=== PATIENT | female | born 1995 | race Caucasian/White ===

== ENCOUNTER 2018-10-26 16:55 | Outpatient (CLI) | payer MEDICAID, SELFPAY ==
[2018-06-02 09:25] VITALS: BMI 37.3
[2018-10-26 17:58] VITALS: BMI 36.4
[2018-10-26 18:11] LABS: ROM Internal Control Test YES-OK TO RESULT pt. (Internal QC); ROM Patient Test Negative (Negative)
--- NOTE | 2018-10-26 20:29 | OB.TRI.PN ---
Progress Notes Date of Service: 10/26/18 Progress Note: at 36w1d. Presented to L&D with complaint of orange tinged vaginal discharge. Denied any uterine contractions, vaginal bleeding or other concerns. O: FHT 135, moderate variability, accels, no decels, Reactive No contractions ROM Plus negative A: Vaginal Discharge P: 1) ROM plus negative, ok to D/C home 2) Follow up as scheduled. Laboratory Studies: Laboratory Tests 10/26/18 Range/Units 17:35 Vag Amniotic Fld Detect Negative (Negative)
== END 2018-10-26 19:04 | disposition home or self-care (01) ==
LOC: WPOUT 17:10 → WP 17:11 → OBT 17:20
PROVIDERS: Family Provider Student in an Organized Health Care Education/Training Program; PCP Student in an Organized Health Care Education/Training Program; Referring Provider Advanced Practice Midwife; Visit Provider Advanced Practice Midwife
DX: O26.893 Other specified pregnancy related conditions, third trimester (principal); N89.8 Other specified noninflammatory disorders of vagina; Z3A.36 36 weeks gestation of pregnancy
CPT/HCPCS: 59025; 59050; 84112; 99218; G0378

== ENCOUNTER 2018-11-16 07:00 | Inpatient (IN) | payer MEDICAID, SELFPAY ==
[2018-11-16 07:19] VITALS: BMI 39.1
[2018-11-16] MEDS: Lactated Ringers 1,000 ML 50 ML IV ×3 (07:45→17:40)
[2018-11-16 07:59] LABS: Absolute Lymphocyte Count 2.14 X10^3/uL (0.83-4.51); Absolute Neutrophil Count 5.2 X10^3/uL (2.0-7.7); Basophil# 0.01 X10^3/uL; Basophil% 0.1 % (0-1); Eosinophil# 0.25 X10^3/uL; Hematocrit 30.8 % (37-47); Hemoglobin 10.2 g/dL (12.0-15.0); Lymphocyte # 2.14 X10^3/ul (4.0); Lymphocyte % 25.7 % (19-41); Mean Corp Hgb Conc 33.1 g/dL (32-36); Mean Corpuscular Hgb 27.3 pg (27.0-32.0); Mean Corpuscular Volume 82.6 fL (81-99); Mean Platelet Vol. 9.7 fl (6.2-12.0); Monocyte# 0.66 X10^3/uL; Monocyte% 7.9 % (0-10); NRBC Flagged by Analyzer 0 % (0-5); Neutrophil % 62.5 % (47-70); Platelet Count 273 K/mm3 (150-450); RBC Distribution Width CV 17.6 % (11.6-14.6); RBC Distribution Width SD 51.2 fl (35.1-43.9); Red Blood Count 3.73 M/mm3 (4.2-5.4); White Blood Count 8.3 K/mm3 (4.4-11.0)
[2018-11-16] MEDS: Oxytocin 30 units/NS 500 ml 30 UNITS/500 ML IV.SOLN IV (08:00)
[2018-11-16] MEDS: 0.9% Normal Saline 100 ML IV.SOLN. INTRA-UTER (08:51)
--- NOTE | 2018-11-16 08:58 | HP.PCM_ITS ---
- Problem List (1) Anemia affecting Status: Acute (2) Asthma Status: Acute (3) History of labor Status: Acute (4) Positive GBS test Status: Acute (5) Term Status: Acute (6) Elective induction of labor planned Status: Acute History Date of Admission: 02/22/11 Final TENZIN: 11/22/18 Gestational age: 39 Weeks and 1 Days History of this : This is a 23 year-old, G [2], P [0101], at 39 weeks gestational age. Presents for elective induction of labor. Medical History: Medical History (Last Reviewed 11/09/18 @ 13:24 by Milena Valles) Environmental allergies Z91.09 Headaches, cluster G44.009 and not yet delivered Z34.90 Surgical History: Surgical History (Last Reviewed 11/09/18 @ 13:24 by Milena Valles) History of appendectomy Z90.49 History of cholecystectomy Z90.49 History of right knee surgery Z98.890 Allergies No Known Allergies Allergy (Verified 11/16/18 07:45) Home Medications: Home Medications vitamin,calcium,urtqikqb-tswm-lsghp acid tablet 1 tab PO DAILY 06/02/18 Famotidine [Pepcid] 40 mg PO 11/16/18 Ferrous Sulfate [Iron] 325 mg PO 11/16/18 Smoking Status: Never smoker Alcohol: None Number of Fetus(es): 1 NST - FHR Rate Baby A Baseline: 135 Variability:: Moderate Accelerations:: 15 x 15 Decelerations:: None NST Reactive:: Yes FHR Category:: Category I Uterine Activity:: Irregular, mild History Past Pregnancies: Past Pregnancies Delivery Date Name GA/Weeks Outcome Route Weight Gender Labor Length Anesthesia Delivery Location Provider FOB Labs: GBS positive RPR negative Rubella Immune HBsAG negative HIV negative AB positive GC/CT negative Expected Infant Delivery Method: Spontaneous Vaginal Review of Systems Constitutional: Denies: Chills, Fever, Weight Change HEENT: Denies: Head Aches, Sinus Congestion, Sinus Drainage Cardiovascular: Denies: Chest Pain, Palpitations Respiratory: Denies: Cough, Shortness of breath at rest, Sputum production Gastrointestinal: Denies: Abdominal Pain, Nausea, Vomiting Genitourinary: Denies: Dysuria Musculoskeletal: Denies: Joint Pain, Joint Tenderness Neurological: Denies: Numbness, Tingling, Focal weakness Psychiatric: Denies: Anxiety, Depression, Homicidal Ideations, Suicidal Ideations Physical Exam General: Alert, Oriented x3, No apparent distress HEENT: Atraumatic, Normocephalic Cardiovascular: Regular rate, Regular Rhythm, No murmurs Lungs: Clear to auscultation, Normal air movement, No rhonchi, No wheeze Abdomen: Soft, Non Tender, Gravid, Appropriate for Gestational Age Extremities:: No edema Neurological: - - DTR +1/4 bilateral patellar CERTIFIED SKI PATROLLER: Normal external genitalia Estimated gestational size: Appropriate for gestational size Presentation: Cephalic Cervix Dilation (cm): 3 Station: -2 Effacement (%): 75 Assessment/Plan All Active Problems (Last Reviewed 11/09/18 @ 13:24 by Milena Valles) Anemia affecting (Acute) Asthma (Acute) History of labor (Acute) Positive GBS test (Acute) Term (Acute) Elective induction of labor planned (Acute) Segmental and somatic dysfunction of pelvic region (Acute) Segmental and somatic dysfunction of thoracic region (Acute) Segmental and somatic dysfunction of lumbar region (Acute) Segmental and somatic dysfunction of cervical region (Acute) This is a 23 year-old, G [2], P [0101], at 39 weeks gestational age for elective IOL. Category 1 FHT P: 1) Admit to L&D. Routine labs 2) Planning epidural for pain management 3) notified of patient status and admission.
--- NOTE | 2018-11-16 12:56 | PN.OBGYN_ITS ---
Patient Problems: Active and Suspected Problems (Last Reviewed 11/09/18 @ 13:24 by iMlena Valles) Anemia affecting (Acute) Asthma (Acute) History of labor (Acute) Positive GBS test (Acute) Subjective: Resting well in bed. Family at bedside. Objective: FHT 120, moderate variability, accels, no decels, Category 1 Pitocin at 2mu's TOCO: every 2-3 minutes. Mild to moderate Cervix: 5cm/80%/-1 IBOW AROM for moderate amount of clear fluid, tolerated well. - Physical Exam Weight: 228 lb Body Mass Index (BMI) 39.1 Laboratory Tests Past 24 Hrs 11/16/18 11/16/18 07:45 07:45 WBC 8.3 RBC 3.73 L Hgb 10.2 L Hct 30.8 L MCV 82.6 MCH 27.3 MCHC 33.1 RDW Std Deviation 51.2 H RDW Coeff of Ino 17.6 H Plt Count 273 MPV 9.7 Immature Gran % (Auto) 0.800 Neut % (Auto) 62.5 Lymph % (Auto) 25.7 [place] % (Auto) 7.9 Eos % (Auto) 3.0 Baso % (Auto) 0.1 Absolute Neuts (auto) 5.2 Absolute Lymphs (auto) 2.14 Nucleated RBC % 0 Blood Type AB POSITIVE Antibody Screen NEGATIVE Medical Necessity - Tobacco Use Smoking Status: Never smoker Assessment/Plan All Active Problems (Last Reviewed 11/09/18 @ 13:24 by Milena Valles) Anemia affecting (Acute) Asthma (Acute) History of labor (Acute) Positive GBS test (Acute) Segmental and somatic dysfunction of pelvic region (Acute) Segmental and somatic dysfunction of thoracic region (Acute) Segmental and somatic dysfunction of lumbar region (Acute) Segmental and somatic dysfunction of cervical region (Acute) A:IOL, progressing Category 1 FHT P: 1) Continue with active management. AROM, reviewed r/b/a with patient, consented. 2) Epidural upon patient request 3) updated
[2018-11-16] MEDS: fentaNYL-bupivacaine (epidural) 100 ML BAG EPIDURAL ×2 (13:50→17:43)
[2018-11-16] MEDS: Oxytocin 30 units/NS 500 ml 30 UNITS/500 ML IV.SOLN 334 UNITS IV (18:35)
[2018-11-16] MEDS: 0.9% Saline Lock 10 ML Syringe IV (21:04)
--- NOTE | 2018-11-16 21:54 | PCM.OPRPT ---
Problem List (1) Anemia affecting Status: Acute (2) Asthma Status: Acute (3) History of labor Status: Acute (4) Positive GBS test Status: Acute (5) Term Status: Acute (6) Elective induction of labor planned Status: Acute (7) Vaginal delivery Status: Acute (8) First degree perineal laceration Status: Acute Vaginal Delivery Maternal Presentation: Elective Induction Method of Induction: Pitocin, [place] Bulb Amniotic Membrane Rupture Type: Artificial Amniotic Fluid Description: Clear Final TENZIN: 11/22/18 Gestational age: 39 Weeks and 1 Days Date of Procedure: 11/16/18 Pre-Operative Diagnosis: Elective Induction of Labor Post-Operative Diagnosis: Surgery/ Procedure Performed: Spontaneous Vaginal Delivery Type of Anesthesia: Epidural Description of Procedure: Baby with FHT down to 70's. Upon cervical exam found to b 9.5cm. Recover of FHT to 120's. Progressed to complete and pushing efforts began. of viable male over intact perineum with small first degree periurethral laceration. Infant head delivered with body forthcoming. Placed on maternal abdomen strong cry, mouth and nares suctioned for secretions. Pitocin started for active third stage management. Cord clamped and cut after pulsations ceased by FOB. Placenta delivered via maternal effort, intact, 3 vessel cord. Perineum inspected and revealed small first degree laceration periurethral. Repaired under epidural analgesia and 3.0 vicryl. Fundus firm and hemostasis achieved, 150ml EBL. Instrument and sponge count correct. Vaginal sweep completed. Mom and baby stable, family bonding well. Presentation: Vertex Placental Delivery Description: Spontaneous Placenta Disposition: [facility] Cord Vessel Description: 3 Vessels Cord Entanglement: None Estimated Blood Loss: 150 ml Infant A gender: Male (1 minute): 9 (5 minute): 9 Episiotomy Description: None Laceration: Periurethral Extnsion/lac, 1st degree Medications given after delivery: IV Pitocin
[2018-11-17 00:11] VITALS: BP 115/65; PULSE 90; RESP 16; TEMP 36.2; O2SAT 95
[2018-11-17] MEDS: Acetaminophen 500 MG Tablet 1000 MG PO (00:28)
[2018-11-17 04:30] VITALS: BP 106/56; PULSE 88; RESP 16; TEMP 36.2; O2SAT 97
[2018-11-17 06:08] LABS: Hematocrit 30.4 % (37-47); Hemoglobin 9.8 g/dL (12.0-15.0); Mean Corp Hgb Conc 32.2 g/dL (32-36); Mean Corpuscular Hgb 26.8 pg (27.0-32.0); Mean Corpuscular Volume 83.3 fL (81-99); Mean Platelet Vol. 9.5 fl (6.2-12.0); Platelet Count 252 K/mm3 (150-450); RBC Distribution Width CV 17.7 % (11.6-14.6); RBC Distribution Width SD 53.1 fl (35.1-43.9); Red Blood Count 3.65 M/mm3 (4.2-5.4); White Blood Count 12.1 K/mm3 (4.4-11.0)
--- NOTE | 2018-11-17 07:38 | PCM.PN.OB ---
Patient Problems: Active and Suspected Problems (Last Reviewed 11/09/18 @ 13:24 by Milena Valles) Anemia affecting (Acute) Asthma (Acute) History of labor (Acute) Positive GBS test (Acute) Term (Acute) Elective induction of labor planned (Acute) Vaginal delivery (Acute) First degree perineal laceration (Acute) Subjective: pain well controlled, average lochia - Physical Exam General: Alert, Cooperative, No apparent distress Vital Signs Temp Pulse Resp BP Pulse Ox 97.2 F L 88 16 106/56 L 97 11/17/18 04:30 11/17/18 04:30 11/17/18 04:30 11/17/18 04:30 11/17/18 04:30 Oxygen Delivery Method Room Air Weight: 103.419 kg Body Mass Index (BMI) 39.1 Intake and Output for Last 24 Hours 11/15/18 11/16/18 11/17/18 23:59 23:59 23:59 Intake Total 2600 / 2600 Output Total 1000 / 1000 700 / 700 Balance 1600 / 1600 -700 / -700 Laboratory Tests Past 24 Hrs 11/16/18 11/16/18 11/17/18 07:45 07:45 05:50 WBC 8.3 12.1 H RBC 3.73 L 3.65 L Hgb 10.2 L 9.8 L Hct 30.8 L 30.4 L MCV 82.6 83.3 MCH 27.3 26.8 L MCHC 33.1 32.2 RDW Std Deviation 51.2 H 53.1 H RDW Coeff of Ino 17.6 H 17.7 H Plt Count 273 252 MPV 9.7 9.5 Immature Gran % (Auto) 0.800 Neut % (Auto) 62.5 Lymph % (Auto) 25.7 [place] % (Auto) 7.9 Eos % (Auto) 3.0 Baso % (Auto) 0.1 Absolute Neuts (auto) 5.2 Absolute Lymphs (auto) 2.14 Nucleated RBC % 0 Blood Type AB POSITIVE Antibody Screen NEGATIVE Medical Necessity - Tobacco Use Smoking Status: Never smoker Assessment/Plan All Active Problems (Last Reviewed 11/09/18 @ 13:24 by Milena Valles) Anemia affecting (Acute) Asthma (Acute) History of labor (Acute) Positive GBS test (Acute) Term (Acute) Elective induction of labor planned (Acute) Vaginal delivery (Acute) First degree perineal laceration (Acute) Segmental and somatic dysfunction of pelvic region (Acute) Segmental and somatic dysfunction of thoracic region (Acute) Segmental and somatic dysfunction of lumbar region (Acute) Segmental and somatic dysfunction of cervical region (Acute) PPD#1 s/p doing well routine care in [facility] for resp. issues
[2018-11-17 09:00] VITALS: BP 96/49; PULSE 87; RESP 18; TEMP 36.2
[2018-11-17] MEDS: Ibuprofen 600 MG Tablet PO (09:05)
[2018-11-17 13:00] VITALS: BP 108/63; PULSE 68; RESP 18; TEMP 36.4
[2018-11-17 16:00] VITALS: BP 115/68; PULSE 64; RESP 16; TEMP 36.1
[2018-11-17 21:00] VITALS: BP 117/78; PULSE 84; RESP 18; TEMP 36.7
== END 2018-11-17 22:50 | disposition home or self-care (01) | DRG 560 ==
PROVIDERS: Admitting Provider Advanced Practice Midwife; Family Provider Student in an Organized Health Care Education/Training Program; PCP Student in an Organized Health Care Education/Training Program; Referring Provider Advanced Practice Midwife; Visit Provider Advanced Practice Midwife
DX: O99.02 Anemia complicating childbirth (principal); D64.9 Anemia, unspecified; O99.820 Streptococcus B carrier state complicating pregnancy; O70.0 First degree perineal laceration during delivery; O99.513 Diseases of the respiratory system complicating pregnancy, third trimester; J45.909 Unspecified asthma, uncomplicated; Z87.51 Personal history of pre-term labor; Z3A.39 39 weeks gestation of pregnancy; Z37.0 Single live birth
CPT/HCPCS: 59025; 59050; 85025; 85027; 86850; 86900; 86901; 99218; J7120; A4216; G0378

== ENCOUNTER 2019-04-22 06:00 | Day surgery (SDC) | payer MEDICAID, SELFPAY ==
[2019-01-19 11:59] VITALS: BMI 39.1
--- NOTE | 2019-04-21 21:08 | PCM.HP.OB ---
- Problem List (1) Sterilization Status: Acute History Date of Admission: 04/22/19 History of this : This is a 23 year-old who desires permanent sterilization. Medical History: Medical History (Last Reviewed 01/19/19 @ 11:47 by Milena Valles) Environmental allergies Z91.09 Headaches, cluster G44.009 and not yet delivered Z34.90 Surgical History: Surgical History (Last Reviewed 01/19/19 @ 11:47 by Milena Valles) History of appendectomy Z90.49 History of cholecystectomy Z90.49 History of right knee surgery Z98.890 Allergies No Known Allergies Allergy (Verified 04/15/19 10:02) Home Medications: Home Medications Norethindrone-E.estradiol-Iron [Aurovela Fe 1-20 Tablet] 1 ea PO DAILY 04/15/19 buPROPion SR [Wellbutrin SR (150mg tablets)] 150 mg PO DAILY 04/15/19 Smoking Status: Never smoker History Past Pregnancies: Past Pregnancies Delivery Date Name GA/ Weeks Outcome Route Wt Infant Sex Labor Length Anesthesia Delivery Location Provider FOB Review of Systems Constitutional: Denies: Fever Eyes: Denies: Blurred vision HEENT: Denies: Head Aches Cardiovascular: Denies: Chest Pain Respiratory: Denies: Cough, Shortness of Breath Gastrointestinal: Denies: Abdominal Pain Genitourinary: Denies: Dysuria Gynecological: Denies: Vaginal bleeding Psychiatric: Denies: Anxiety, Depression Physical Exam General: Alert, No apparent distress HEENT: Atraumatic Cardiovascular: Regular rate Lungs: Clear to auscultation Abdomen: Soft, Non Tender Extremities:: No edema Neurological: Neuro grossly intact Assessment/Plan All Active Problems (Last Reviewed 01/19/19 @ 11:47 by Milena Valles) Anemia affecting (Acute) Asthma (Acute) History of labor (Acute) Positive GBS test (Acute) Term (Acute) Elective induction of labor planned (Acute) Vaginal delivery (Acute) First degree perineal laceration (Acute) Sterilization (Acute) Segmental and somatic dysfunction of pelvic region (Acute) Segmental and somatic dysfunction of thoracic region (Acute) Segmental and somatic dysfunction of lumbar region (Acute) Segmental and somatic dysfunction of cervical region (Acute) This is a 23 year-old depressed patient who desires permanent sterilization. She is 100% certain that she does not want more children in the future. She understands that the surgery is permanent and not reversible, and that there is a risk for regret. She understands all other options for control including long-acting reversible contraception. Reviewed pre-and postoperative care. After discussion of risks, benefits, alternatives the patient desires to proceed with laparoscopic salpingectomy.
[2019-04-22] VITALS (7 sets, daily range): BP systolic 87–112; BP diastolic 49–70; PULSE 57–117; RESP 16; TEMP 36.2–36.8; O2SAT 92–100; BMI 38.2
--- NOTE | 2019-04-22 06:23 | EKG12_ITS ---
Test Reason : PREOP Blood Pressure : / mmHG Vent. Rate : 067 BPM Atrial Rate : 067 BPM P-R Int : 132 ms QRS Dur : 094 ms QT Int : 388 ms P-R-T Axes : -12 035 006 degrees QTc Int : 409 ms Normal sinus rhythm with sinus arrhythmia T wave abnormality, consider anterior ischemia Abnormal ECG When compared with ECG of 30-APR-2014 11:42, Fusion complexes are no longer Present Premature ventricular complexes are no longer Present Vent. rate has decreased BY 53 BPM Confirmed by SAMIRA CAVAZOS, CARLA ([id number]), communications editor ANTWON MENDEZ ([id number]) on 04/23/2019 2:44:33 PM Referred By: Tri Stanley Confirmed By:EILEEN HOGAN MD
[2019-04-22 06:36] LABS: Hematocrit 42.3 % (37-47); Hemoglobin 13.9 g/dL (12.0-15.0); Mean Corp Hgb Conc 32.9 g/dL (32-36); Mean Corpuscular Hgb 28.3 pg (27.0-32.0); Mean Platelet Vol. 9.4 fl (6.2-12.0); Platelet Count 370 K/mm3 (150-450); RBC Distribution Width CV 12.7 % (11.6-14.6); RBC Distribution Width SD 39.7 fl (35.1-43.9); Red Blood Count 4.92 M/mm3 (4.2-5.4)
[2019-04-22 06:36] LABS: Internal QC Validated? YES +Cl - CLEAR BKGD; Pregnancy, Urine Negative Negative
[2019-04-22] MEDS: Lactated Ringers 1,000 ML 100 ML IV (06:45)
--- NOTE | 2019-04-22 07:30 | FALS_PTH ---
PATIENT: THAD BLUE LOC: [facility] U#:[id number] AGE/SX: 23/F ROOM: RE04/22/[address]: Dr. Tri Stanley DO : 1995 BED: DIS: 04/22/2019 SPEC #: [id number] RECD: 04/22/19 12:25 STATUS: JONATHAN REBailee #: [id number] ML: 04/22/19 07:[address]: Tri Stanley DEPT: SURGICAL PATHOLOGY RECD BY: Josh Herrera ENTERED: 04/22/19 14:02 SP TYPE: FALL TUBES OTHR DR: Dr. Ean Huffman DO Tissues: Fallopian tube Procedures: Surgery Specimen Level II HEADER OPERATION: Laparoscopic salpingectomy PRE-OP DIAGNOSIS: Sterilization TISSUE SUBMITTED: Bilateral fallopian tubes MICROSCOPIC DIAGNOSIS Bilateral fallopian tubes, salpingectomy: Bilateral fallopian tubes including fimbrial ends, no pathologic diagnosis. SJ:gwendolyn 04/23/19 MICROSCOPIC DESCRIPTION Slides are reviewed. GROSS DESCRIPTION Received is one container labeled with the patient's name and designated bilateral fallopian tubes. The specimen consists of bilateral fallopian tubes including fimbrial ends each measuring 6 cm in length and 0.5 cm in diameter. Sections do not reveal any mass lesion. The fallopian tubes are not identified as right or left. Sections reveal unremarkable cut surfaces. Director Of Laboratory Operations sections are submitted in two cassettes with each cassette containing one fallopian tube. / JOON:gwendolyn 04/22/19 TC:4 [facility]: [id number] x2
[2019-04-22] MEDS: Bupivacaine Mpf 0.5% 30 ML VIAL (07:41)
--- NOTE | 2019-04-22 08:21 | DCINST_ITS ---
You will use the following diet at home:: No restrictions Discharge Activity: May not drive while taking narcotic pain medications., May Shower May resume sexual activity in: 4-6 weeks Weight Bearing Status: Weight bearing as tolerated Lifting Restrictions: No lifting greater than 20 pounds Call your doctor if your incision/area has: Sudden Increased Bleeding, Increased Pain/ Swelling, Increased Redness, Foul Smelling Discharge, Swelling at the incision site Call your doctor if you observe: Fever of 101 or Higher, Inability to urinate, Inability to have a bowel movement, Using more than one pad per hour, Shortness of breath, Dizziness, Chest pain, Increased palpitations (irregular heartbeat), Calf discomfort, Uncontrolled pain Suture Line Care: Avoid Pulling/Pushing Cleanse incision/area with: Soap & Water Allergies/Adverse Reactions: Allergies No Known Allergies Allergy (Verified 04/22/19 06:36) Medications to take at Discharge Norethindrone-E.estradiol-Iron [Aurovela Fe 1-20 Tablet] 1 ea PO DAILY 04/15/19 buPROPion SR [Wellbutrin SR (150mg tablets)] 150 mg PO DAILY 04/15/19 Primary Care Physician: Ean Huffman DO [Primary Care Provider] - Test Results: Test results from this visit will be discussed in further detail at your follow- up appointment, if applicable. Please Follow Up With: Tri Stanley DO When: 1-2 weeks
--- NOTE | 2019-04-22 08:22 | PCM.OPRPT ---
Problem List (1) Sterilization Status: Acute Report of Operation Date of Procedure: 04/22/19 Pre-Operative Diagnosis: Desires permanent sterilization, multiparous patient Post-Operative Diagnosis: Above Surgery/Procedure Performed:: Laparoscopic bilateral salpingectomy Description of Surgical Findings:: Normal-appearing uterus, bilateral tubes, bilateral ovaries. Normal-appearing pelvic cul-de-sac. Normal-appearing liver edge. Special Medications: none Specimen's removed: bilateral fallopian tubes Drains: none Estimated Blood Loss (mL): < 10 cc Description of Procedure: Patient was taken to the operating room where general anesthesia was induced and found to be adequate. She was prepped and draped in the dorsal lithotomy position using yellowfin stirrups. Speculum was placed in the vagina to expose the cervix. A single-tooth tenaculum was placed on the anterior lip of the cervix. A uterine manipulator was placed. The single-tooth tenaculum and speculum were then removed from the vagina. Gloves were then changed and attention was turned to the abdominal portion of the case. Local was injected, and an incision made to accommodate a 5 mm port infraumbilically. The 5 mm port was then placed using the laparoscope under direct visualization. Once confirmed intraperitoneal, CO2 insufflation was initiated. Findings were noted as above. The left fallopian tube was followed out to the fimbriated end, and the LigaSure device was used to cauterize and transect along the mesosalpinx to remove the left fallopian tube. The same was performed to the right fallopian tube. Bilateral fallopian tubes were removed and sent to the pathologist for review. Hemostasis was noted. All the ports were removed from the abdomen. Port sites were closed in a subcuticular fashion. Below the uterine manipulator was removed and a vaginal sweep was performed. Instrument counts were correct. The patient was taken to the recovery room in stable condition. Grafts/Implants Used: None - Complications None - Admit VTE Documentation VTE Present on Admission: No VTE Mechan Device Prophylaxis: SCD's
== END 2019-04-22 10:06 | disposition home or self-care (01) ==
LOC: SDC 06:01 → AC 06:02
PROVIDERS: Family Provider Student in an Organized Health Care Education/Training Program; PCP Student in an Organized Health Care Education/Training Program; Referring Provider Obstetrics & Gynecology; Visit Provider Obstetrics & Gynecology
PROC: (CPT 58661; principal; 2019-04-22 07:15)
DX: Z30.2 Encounter for sterilization (principal); J45.909 Unspecified asthma, uncomplicated; F32.9 Major depressive disorder, single episode, unspecified
CPT/HCPCS: 00840; 58661; 81025; 85027; 86850; 86900; 86901; 88302; 93005; J7120; J2405

== ENCOUNTER 2022-04-14 12:43 | Emergency (ER) | payer MEDICAID, SELFPAY ==
[2022-04-14 12:44] VITALS: BP 130/89; PULSE 95; RESP 18; TEMP 35.2; O2SAT 97; BMI 36.3
--- NOTE | 2022-04-14 13:04 | EDS_ITS ---
HPI History of Present Illness HPI Narrative: Patient presents with left ankle injury that occurred yesterday. Patient states she missed a step and fell. Patient thinks her ankle inverted. Patient describes her pain as sharp. Patient states it is worse with ambulation and certain movements. Patient states it is better with rest. Patient denies any paresthesias or weakness. Patient denies any head injury or loss of consciousness. Patient denies any tenderness over the proximal fibula. Patient denies any other injuries. Chief Complaint: Lower Extremity Injury Informant: patient Occured/Mechanism Mechanism/Context: Yes fall Onset/Context/Timing Onset: Yesterday Context: Sudden Onset Timing: Continuous Quality of Pain: Sharp Location: Left ankle Worsened by: Ambulation, certain movements Relieved by: Rest Associated Symptoms Associated Symptoms: Negative for Parasthesia, Weakness or Loss of Funtion [facility] Medical History (Updated 04/14/22 @ 14:[address] Julian Ye DO) Environmental allergies Headaches, cluster and not yet delivered Home Medications cholecalciferol (vitamin D3) 250 mcg (10,000 unit) capsule 250 mcg PO DAILY 04/08/22 [History Last Taken Unknown] cyanocobalamin (vitamin B-12) 1,000 mcg capsule 1,000 mcg PO DAILY 04/08/22 [History Last Taken Unknown] duloxetine 60 mg capsule,delayed release (Cymbalta) 60 mg PO DAILY 04/08/22 [History Last Taken Unknown] ferrous sulfate 325 mg (65 mg iron) tablet (Feosol) 325 mg PO DAILY 04/08/22 [History Last Taken Unknown] Allergy/AdvReac Type Severity Reaction Status Date / Time No Known Allergies Allergy Verified 04/14/22 12:45 Family History Other Depression High cholesterol Hx of psychiatric care Surgical History (Updated 04/14/22 @ 13:[address] Julian Ye DO) History of appendectomy History of cholecystectomy History of right knee surgery Hx of tonsillectomy Social History Smoking Status: Never smoker alcohol intake: current alcohol intake frequency: holidays/special occasions only substance use type: does not use what type of physical activity do you participate in: none ROS ROS ED Constitutional Constitutional ED: Denies chills or fever(s) Eyes Eyes: Denies blurry vision or change in vision ENT ENT ED: Denies rhinorrhea or sore throat Cardiovascular Cardiovascular: Denies chest pain or palpitations Respiratory/Chest Respiratory/Chest: Denies cough or dyspnea Gastrointestinal Gastrointestinal: Denies nausea or vomiting Genitourinary Genitourinary ED: Denies dysuria or hematuria Musculoskeletal Musculoskeletal: Denies back pain or neck pain Integumentary Denies abscess or rash Neurologic Neurologic: Denies headache(s) or weakness Allergic/Immunologic Allergic/Immunologic ED: Denies mouth swelling or urticaria EXAM Physical Exam Const Vital Signs: 04/14/22 12:44 Temperature 95.4 F L Temperature Source Temporal Pulse Rate 95 Respiratory Rate 18 Blood Pressure 130/89 H Blood Pressure Mean 102 Pulse Ox 97 Oxygen Delivery Method Room Air Positive well nourished, well developed and obese General Appearance ED: well developed and NAD Nutritional Appearance: obese HEENT Reports moist mucous membranes normocephalic and atraumatic Neck full ROM and supple Extremity Extremity Narrative: There is tenderness, edema, and ecchymosis over the lateral aspect of the left ankle. There is no obvious deformity noted. Range of motion was limited in all motions of the left ankle secondary to pain. There is mild tenderness over the fifth metatarsal. There is no tenderness over the proximal fibula. Pedal pulses are equal bilaterally. Sensation was intact to light touch in all digits. Capillary refill was less than 2 seconds in all digits. Neuro oriented x3, CN's II-XII intact bilaterally, moves all extremities and no sensory deficits noted Sensorium / Orientation: alert Motor Exam: strength 5/5 throughout Psych mental status grossly normal MDM MDM MDM Narrative Medical decision making narrative: X-rays of the left ankle were obtained. There are 3 views. On my interpretation, there is no acute fracture. There is no dislocation. There is some mild soft tissue swelling. Radiologist also interpreted the x-rays and agrees. X-rays of the left foot were obtained. There are 3 views. On my interpretation, there is no acute fracture. There is no dislocation. There is no soft tissue swelling. Radiologist also interpreted the x-rays and agrees. Patient was advised of her findings. Patient was instructed to ice and elevate the left foot and ankle. Patient was given an Aircast. Patient declined crutches. Patient was instructed to take Tylenol or ibuprofen as needed for pain. I do not feel prescription analgesics are necessary at this time. Patient is agreeable with this. Patient was instructed to follow-up with her primary care physician in 5 to 7 days. Patient understands and is agreeable with the plan. All questions were answered. Radiography Diagnostic Testing: Clinical Impression(s) from Imaging Studies Ankle X-Ray 04/14/22 13:08 IMPRESSION: Subcutaneous soft tissue edema at the lateral aspect of the ankle. Electronically Signed: Remi Ackerman MD at 13:51 EST , Foot X-Ray 04/14/22 13:08 IMPRESSION: Normal x-ray examination of the foot. Electronically Signed: Remi Ackerman MD at 13:52 EST , Discharge Plan Triage Chief Complaint: Lower Extremity Injury ED Provider: Julian Ye Dx/Rx/DC Orders Clinical Impression: Left ankle sprain, Sprain of left foot, Fall Instructions: ED Ankle Sprain (Adult) Prescriptions: No Action cholecalciferol (vitamin D3) 250 mcg (10,000 unit) capsule 250 mcg PO DAILY cyanocobalamin (vitamin B-12) 1,000 mcg capsule 1,000 mcg PO DAILY duloxetine [Cymbalta] 60 mg capsule,delayed release(DR/EC) 60 mg PO DAILY ferrous sulfate [Feosol] 325 mg (65 mg iron) tablet 325 mg PO DAILY Primary Care Provider: Ean Huffman Referrals: Ean Huffman DO [Primary Care Provider] - 5-7 Days Disposition Disposition: Home, Self Care
--- NOTE | 2022-04-14 13:08 | RAD_ITS ---
STUDY: X-RAY - LEFT FOOT CLINICAL: Female, 26 years old. Injury/Pain TECHNIQUE: 3 view(s) of the foot. COMPARISON: None. FINDINGS: Normal talus, calcaneus, and tarsal bones. Normal visualized subtalar, talonavicular, calcaneocuboid, tarsal and tarsometatarsal articulations. Normal metatarsi. Normal metatarsophalangeal joint of the great toe. Normal tibial and fibular sesamoid bones. Normal interphalangeal joint of the great toe. Normal phalanges of the great toe. Normal second through fifth metatarsophalangeal joints. Normal interphalangeal joints and phalanges of the lesser toes. The soft tissue structures are unremarkable. RAD/Foot min 3 Views IMPRESSION: Normal x-ray examination of the foot. Electronically Signed: Remi Ackerman MD at 13:52 EST ,
--- NOTE | 2022-04-14 13:08 | RAD_ITS ---
STUDY: X-RAY - LEFT ANKLE REASON FOR EXAM: Female, 26 years old. Injury/Pain TECHNIQUE: 3 view(s) of the ankle. COMPARISON: None. FINDINGS: Normal visualized distal tibia and fibula. Normal medial and lateral malleoli. Normal tibiotalar articulation and ankle mortise. Normal visualized talus and calcaneus. The visualized subtalar, talonavicular, calcaneocuboid and tarsal articulations are normal. There is soft tissue swelling at the lateral aspect of the ankle suggesting edema. RAD/Ankle min 3 Views IMPRESSION: Subcutaneous soft tissue edema at the lateral aspect of the ankle. Electronically Signed: Remi Ackerman MD at 13:51 EST ,
[2022-04-14] MEDS: HYDROcodone Bitartrate/Apap 5/325 Tablet PO (13:31)
== END 2022-04-14 14:30 | disposition home or self-care (01) ==
PROVIDERS: Emergency Provider Emergency Medicine; PCP Student in an Organized Health Care Education/Training Program; Visit Provider Emergency Medicine
DX: S93.402A Sprain of unspecified ligament of left ankle, initial encounter (principal); E66.9 Obesity, unspecified; W10.9XXA Fall (on) (from) unspecified stairs and steps, initial encounter
CPT/HCPCS: 73610; 73630; 99283

== ENCOUNTER 2024-01-26 09:30 | Emergency (ER) | payer MEDICAID, SELFPAY ==
[2024-01-26 09:31] VITALS: BP 146/89; PULSE 104; RESP 18; TEMP 35.8; O2SAT 100; BMI 33.6
--- NOTE | 2024-01-26 09:41 | CT_ITS ---
STUDY: CT ABDOMEN AND PELVIS WITH CONTRAST REASON FOR EXAM: Female, 28 years old. Abdominal pain and rectal bleeding RADIATION DOSAGE (If Supplied By Facility): CTDIvol = ( 15.95 ) mGy, DLP = ( 1043.24 ) mGycm TECHNIQUE: Transaxial images were obtained from the dome of the diaphragm to the symphysis pubis without oral contrast. IV 100mL Isovue-300 was administered. Sagittal and coronal images were reconstructed. Individualized dose optimization techniques were used for this CT. COMPARISON: Comparison is made with prior study dated October 02, 2012. FINDINGS: The visualized lung bases are unremarkable. The visualized portions of the heart are within normal limits. Normal liver. The patient is status post cholecystectomy. Normal spleen. Normal pancreas. Normal bilateral adrenal glands. Normal right kidney. Normal left kidney. Normal visualized stomach. Normal small intestine. Abnormal mucosal pattern of the distal transverse colon as well as the descending colon and rectosigmoid colon suggestive of colitis. The patient status post appendectomy. Normal abdominal aorta. Normal inferior vena cava. Normal retroperitoneum. Normal urinary bladder. Normal abdominal wall. Normal osseous structures. CT/Abdomen/Pelvis W IV Cont ONLY IMPRESSION: Findings suggestive of colitis of the distal transverse colon as well as the descending colon and rectosigmoid colon. Electronically Signed: Hugo Navarro MD at 11:32 EDT ,
--- NOTE | 2024-01-26 09:42 | ED.VIS.GI ---
HPI HPI - GI History of Present Illness Chief Complaint: Abd Pain Detail of Chief Complaint: Abdominal pain and rectal bleeding Informant: patient Narrative Narrative: Patient presents to the emergency department with complaint of abdominal pain that started last evening around 6 PM. Patient states that she was at a store when she had sudden onset of upper abdomen pain that made her sweaty and nauseated. She vomited a couple times. Patient states that pain now is moved down to the lower abdomen. This morning she had urged to have a bowel movement but only had blood passed by rectum. She denies fevers or chills or sweats. No family history of inflammatory bowel disease. No history of hemorrhoids. Patient states the pain comes in waves. [facility] Medical History and not yet delivered Headaches, cluster Environmental allergies Home Medications ?Medication ?Instructions ?Recorded ?Last Taken ?Type cholecalciferol (vitamin D3) 250 250 mcg PO DAILY 04/08/22 Unknown History mcg (10,000 unit) capsule cyanocobalamin (vitamin B-12) 1,000 mcg PO DAILY 04/08/22 Unknown History 1,000 mcg capsule duloxetine 60 mg capsule,delayed 60 mg PO DAILY 04/08/22 Unknown History release (Cymbalta) ferrous sulfate 325 mg (65 mg 325 mg PO DAILY 04/08/22 Unknown History iron) tablet (Feosol) ciprofloxacin HCl 500 mg tablet 500 mg PO BID #14 TABLETS 01/26/24 Unknown Rx metronidazole 500 mg tablet 500 mg PO TID #21 tabs 01/26/24 Unknown Rx Allergy/AdvReac Type Severity Reaction Status Date / Time No Known Allergies Allergy Verified 01/26/24 09:31 Family History Other Depression High cholesterol Hx of psychiatric care Surgical History Hx of tonsillectomy History of right knee surgery History of cholecystectomy History of appendectomy Social History Smoking Status: Never smoker alcohol intake: current alcohol intake frequency: holidays/special occasions only substance use type: does not use what type of physical activity do you participate in: none ROS ROS ED Review of Systems ROS Unobtainable: other Constitutional Constitutional ED: Reports lethargy; Denies chills, fever(s), sweats or weight loss Eyes Eyes: Denies blurry vision, change in vision or diplopia ENT ENT ED: Denies rhinorrhea or sore throat Cardiovascular Cardiovascular: Denies chest pain, orthopnea or racing heartbeat Respiratory/Chest Respiratory/Chest: Denies cough, dyspnea, dyspnea on exertion, orthopnea or sputum Gastrointestinal Gastrointestinal: Reports abdominal pain, nausea, vomiting and other Details: Bright red blood per rectum ; Denies diarrhea Genitourinary Genitourinary ED: Denies dysuria, hematuria or urinary frequency Musculoskeletal Musculoskeletal: Denies arthralgias, back pain, myalgias or neck pain Integumentary Denies abscess, Abrasions or rash Neurologic Neurologic: Denies headache(s) or weakness Psychiatric Psychiatric: Denies anxiety, depression or suicidal thoughts Endocrine Endocrinology: Denies polydipsia, polyphagia or polyuria Hematologic/Lymphatic Hematologic/Lymphatic: Denies easy bleeding, easy bruising or lymphadenopathy Allergic/Immunologic Allergic/Immunologic ED: Denies mouth swelling, tongue swelling or urticaria EXAM Physical Exam Const Vital Signs: 01/26/24 09:31 01/26/24 11:30 Temperature 96.5 F L Temperature Source Temporal Pulse Rate 104 H 78 Respiratory Rate 18 Blood Pressure 146/89 H Blood Pressure Mean 108 Pulse Ox 100 98 Oxygen Delivery Method Room Air Positive well nourished and well developed General Appearance ED: well developed and NAD HEENT Reports TM's clear and moist mucous membranes normocephalic and atraumatic; Negative for trauma or tenderness Tympanic Membrane ED: Yes TM's clear Eyes PERRL and EOMs intact bilaterally General Eye ED: Negative for pale conjunctiva or scleral icterus Neck no lymphadenopathy, supple and no JVD General: Negative for tenderness Chest Wall inspection of chest normal and palpation of chest normal Chest: Negative for tenderness Resp normal respiratory effort and clear to auscultation bilaterally Effort and Inspection: Negative for respiratory distress or pain with movement Auscultation: Negative for rhonchi, wheezes or diminished lung sounds Cardio regular rate, regular rhythm, S1 normal heart sound, S2 normal heart sound and no murmurs Peripheral Pulses: pulses 2+ throughout GI normal to inspection, nondistended, normoactive bowel sounds, soft to palpation, non-distended and no masses GI Narrative: Tenderness palpation over left lower quadrant and suprapubic region with some guarding. There is no rebound, rigidity, or purulent signs. No mass palpated. Back/Spine no CVA tenderness and no thoracic nor lumbar tenderness Extremity normal to inspection General Extremety ED: Negative for edema General Extremity: Negative for edema Neuro oriented x3, CN's II-XII intact bilaterally, no sensory deficits noted and gait normal Sensorium / Orientation: awake, alert, oriented to person, oriented to place and oriented to time Motor Exam: strength 5/5 throughout and strength abnormal Psych mental status grossly normal Skin no rashes or lesions noted and no wounds MDM MDM MDM Narrative Medical decision making narrative: Patient presents with abdominal pain and rectal bleeding. Pain mostly left-sided. In the differential would be diverticulitis versus inflammatory bowel disease versus UTI or other acute process. IV line established. CBC with differential white count of 14.5 with platelet count 12.7 and platelet count of 361. Chemistries unremarkable. Blood type is AB+. hCG was negative. CT scan of the abdomen pelvis shows colitis of the transverse and left side of the colon. Will discuss case with GI on-call Dr. Guzman. Will start patient on Cipro and Flagyl. Clinically she looks well and feels she can be treated as an outpatient and may need further evaluation as an outpatient such as colonoscopy to evaluate further. Patient not having any urinary symptoms therefore urinalysis was not obtained. Lab Data Attestation: I reviewed the patient's lab results. Labs: Laboratory Results - last 24 hr 01/26/24 09:55 WBC 14.5 H RBC 4.77 Hgb 12.7 Hct 38.8 MCV 81.3 MCH 26.6 L MCHC 32.7 RDW Std Deviation 41.0 RDW Coeff of Ino 14.1 Plt Count 361 MPV 9.6 Immature Gran % (Auto) 0.300 Neut % (Auto) 76.7 H Lymph % (Auto) 17.2 L [place] % (Auto) 5.2 Eos % (Auto) 0.5 Baso % (Auto) 0.1 Absolute Neuts (auto) 11.1 H Absolute Lymphs (auto) 2.50 Nucleated RBC % 0 Sodium 141 Potassium 3.7 Chloride 107 Carbon Dioxide 25.0 Anion Gap 9 BUN 10 Creatinine 0.80 Estim Creat Clear Calc 106.99 Est GFR (MDRD) Af Amer 108 Est GFR (MDRD) Non-Af 89 BUN/Creatinine Ratio 12.5 Glucose 100 Lactic Acid 1.1 Calcium 9.1 Serum , Qual NEGATIVE Blood Type AB POSITIVE Antibody Screen NEGATIVE Radiography Diagnostic Testing: Clinical Impression(s) from Imaging Studies Abdomen/Pelvis CT 01/26/24 09:41 IMPRESSION: Findings suggestive of colitis of the distal transverse colon as well as the descending colon and rectosigmoid colon. Electronically Signed: Hugo Navarro MD at 11:32 EDT , Discharge Plan Triage Chief Complaint: Abd Pain ED Provider: Bandar Lara Dx/Rx/DC Orders Clinical Impression: Colitis, Acute lower GI bleeding Instructions: ED Understanding Colitis, ED Lower GI Bleeding (Stable) Prescriptions: New ciprofloxacin HCl 500 mg tablet 500 mg PO BID Qty: 14 0RF metronidazole 500 mg tablet 500 mg PO TID Qty: 21 0RF No Action cholecalciferol (vitamin D3) 250 mcg (10,000 unit) capsule 250 mcg PO DAILY cyanocobalamin (vitamin B-12) 1,000 mcg capsule 1,000 mcg PO DAILY duloxetine [Cymbalta] 60 mg capsule,delayed release(DR/EC) 60 mg PO DAILY ferrous sulfate [Feosol] 325 mg (65 mg iron) tablet 325 mg PO DAILY Primary Care Provider: Ean Huffman Referrals: Ean Huffman DO [Primary Care Provider] - FriendMarco DO [Med Staff - Active Staff] - 3-5 Days Print Language: Lithuanian Disposition Disposition: Home, Self Care
[2024-01-26] MEDS: 0.9% Normal Saline (1000mL) 1,000 ML 999 ML IV (10:02)
[2024-01-26 10:16] LABS: Absolute Neutrophil Count 11.1 X10^3/uL (2.0-7.7); Basophil# 0.02 X10^3/uL; Basophil% 0.1 % (0-1); Eosinophil# 0.07 X10^3/uL; Eosinophils% 0.5 % (0-5); Hematocrit 38.8 % (37-47); Hemoglobin 12.7 g/dL (12.0-15.0); Lymphocyte % 17.2 % (19-41); Mean Corp Hgb Conc 32.7 g/dL (32-36); Mean Corpuscular Hgb 26.6 pg (27.0-32.0); Mean Corpuscular Volume 81.3 fL (81-99); Mean Platelet Vol. 9.6 fl (6.2-12.0); Monocyte# 0.76 X10^3/uL; Monocyte% 5.2 % (0-10); NRBC Flagged by Analyzer 0 % (0-5); Neutrophil # 11.12 X10^3/uL (2.7-7.7); Neutrophil % 76.7 % (47-70); Platelet Count 361 K/mm3 (150-450); RBC Distribution Width CV 14.1 % (11.6-14.6); Red Blood Count 4.77 M/mm3 (4.2-5.4); White Blood Count 14.5 K/mm3 (4.4-11.0)
[2024-01-26 10:30] LABS: Anion Gap 9 (5-15); BUN 10 mg/dL (7-18); BUN/Creat Ratio 12.5 RATIO (10-20); Calcium,Total 9.1 mg/dL (8.5-10.1); Chloride 107 mmol/L (98-107); EST Glomerular Filtration Rate 89 mL/min (>60); Est Glom Filt Rate - Afr Amer 108 mL/min (>60); Estimated Creatinine Clearance 106.99 ml/min; Glucose 100 mg/dL (74-106); Potassium 3.7 mmol/L (3.5-5.1); Sodium Level 141 mmol/L (136-145)
[2024-01-26 10:32] LABS: Internal QC Validated? YES +Cl - CLEAR BKGD; Pregnancy, Serum, hCG Quali. NEGATIVE Negative
[2024-01-26 10:40] LABS: Lactic Acid 1.1 mmol/L (0.4-1.9)
[2024-01-26 11:30] VITALS: PULSE 78; O2SAT 98
[2024-01-26] MEDS: Ciprofloxacin 500 MG Tablet PO (12:31)
[2024-01-26] MEDS: metroNIDAZOLE 500 MG Tablet PO (12:31)
[2024-01-26 12:55] VITALS: BP 130/86; PULSE 78; RESP 16; TEMP 36.6; O2SAT 98
== END 2024-01-26 13:14 | disposition home or self-care (01) ==
PROVIDERS: Emergency Provider Emergency Medicine; PCP Student in an Organized Health Care Education/Training Program; Visit Provider Emergency Medicine
DX: K52.9 Noninfective gastroenteritis and colitis, unspecified (principal)
CPT/HCPCS: 74177; 80048; 83605; 84703; 85025; 86850; 86900; 86901; 96360; 99284; J7030; Q9967

== ENCOUNTER 2025-02-04 21:53 | Emergency (ER) | payer BC, SELFPAY ==
[2025-02-04 21:54] VITALS: BP 137/93; PULSE 81; RESP 14; TEMP 36.8; O2SAT 100; BMI 34.9
--- NOTE | 2025-02-04 21:57 | EKG12_ITS ---
Test Reason : CP
[2025-02-04 22:13] LABS: Hematocrit 39.7 % (37-47); Hemoglobin 13.2 g/dL (12.0-15.0); Immature Granulocytes Count 0.020 X10^3/uL (0.0-0.0); Mean Corp Hgb Conc 33.2 g/dL (32-36); Mean Corpuscular Volume 84.1 fL (81-99); Mean Platelet Vol. 9.3 fl (6.2-12.0); NRBC Flagged by Analyzer 0 % (0-5); Platelet Count 362 K/mm3 (150-450); RBC Distribution Width CV 12.7 % (11.6-14.6); RBC Distribution Width SD 38.6 fl (35.1-43.9); Red Blood Count 4.72 M/mm3 (4.2-5.4); White Blood Count 10.0 K/mm3 (4.4-11.0)
[2025-02-04 22:25] VITALS: O2SAT 98
[2025-02-04 22:26] LABS: Anion Gap 9 (5-15); BUN 9 mg/dL (4-19); BUN/Creat Ratio 12.1 RATIO (10-20); Calcium,Total 9.5 mg/dL (7.6-11.0); Carbon Dioxide 26.9 mmol/L (21.0-32.0); Chloride 104 mmol/L (98-108); Estimated Creatinine Clearance 116.89 ml/min (50-250); Glucose 116 mg/dL (70-99); Potassium 3.6 mmol/L (3.3-5.1); Troponin T High Sensitivity < 6 ng/L (<=14)
--- NOTE | 2025-02-04 22:27 | RAD_ITS ---
PROCEDURE: RAD/Chest PA and Lateral
[2025-02-04 22:53] VITALS: BP 106/72; PULSE 80; RESP 16; O2SAT 100
[2025-02-04 23:02] LABS: D-Dimer Quantitative (DVT/PE) 0.34 FEU/ug/m (0.27-0.49)
[2025-02-05] VITALS: BP 107/69; PULSE 72; RESP 16; O2SAT 97
[2025-02-05 00:02] LABS: Troponin T High Sens 2 HR < 6 ng/L (<=14)
[2025-02-05 00:33] VITALS: BP 107/69; PULSE 72; RESP 16; TEMP 36.8; O2SAT 97
--- NOTE | 2025-02-05 00:37 | EX.ED.DYSGE1 ---
HPI History of Present Illness Chief Complaint: Chest Pain Narrative Narrative: Patient was seen and examined after presenting to ED for having chest pain with lightheadedness feeling generally unwell this full occur and flares to the point where she almost feels like she might pass out happened earlier today. [facility] Medical History and not yet delivered Headaches, cluster Environmental allergies Home Medications ?Medication ?Instructions ?Recorded ?Last Taken ?Type cholecalciferol (vitamin D3) 250 250 mcg PO DAILY 04/08/22 Unknown History mcg (10,000 unit) capsule cyanocobalamin (vitamin B-12) 1,000 mcg PO DAILY 04/08/22 Unknown History 1,000 mcg capsule ferrous sulfate 325 mg (65 mg 325 mg PO DAILY 04/08/22 Unknown History iron) tablet (Feosol) ascorbic acid (vitamin C) 500 mg 1,000 mg PO DAILY 02/04/25 Unknown History tablet phentermine 37.5 mg tablet 37.5 mg PO DAILY 02/04/25 Unknown History spironolactone 100 mg tablet 100 mg PO BID 02/04/25 Unknown History ibuprofen 600 mg tablet 600 mg PO Q6H PRN PRN fever or 02/05/25 Unknown Rx pain #20 TABLETS Allergy/AdvReac Type Severity Reaction Status Date / Time No Known Allergies Allergy Verified 02/04/25 21:54 Family History Other Depression High cholesterol Hx of psychiatric care Surgical History Hx of tonsillectomy History of right knee surgery History of cholecystectomy History of appendectomy Social History Smoking Status: Never smoker alcohol intake: current alcohol intake frequency: holidays/special occasions only substance use type: does not use what type of physical activity do you participate in: none ROS ROS ED ROS Narrative Pertinent Positives: Chest pain feeling lightheaded near syncopal nausea Pertinent Negatives: Fevers chills shortness of breath vomiting double vision numbness tingling abdominal pain diarrhea vomiting The remainder of review of systems negative unless otherwise stated in the HPI above. Systems reviewed including constitutional, psychiatric, cardiovascular, respiratory, integument, HENT, gastrointestinal. EXAM Physical Exam Narrative Exam Narrative: Patient is afebrile hemodynamically stable does not appear toxic or in distress she is normocephalic and atraumatic pupils equal round reactive light. EOMI. No nystagmus. Normal heart and lung sounds. No pericardial friction rub. No noticeable arrhythmia. She does have reproducible tenderness that is mimicking the exact pain that she has been describing right overlying her costochondral junction on the left. Intact and equal MSPs in her extremities no lower extremity edema or calf tenderness. No overlying erythema vesicular lesions crepitus or other skin discoloration of her chest. Her abdomen is soft nontender nondistended no palpable pulsatile mass. Const Vital Signs: 02/04/25 21:54 02/04/25 22:25 02/04/25 22:25 Temperature 98.3 F Temperature Source Oral Pulse Rate 81 Respiratory Rate 14 Respiratory Effort Normal Non-Labored Respiratory Pattern Normal Blood Pressure 137/93 H Blood Pressure Mean 107 Pulse Ox 100 98 Oxygen Delivery Method Room Air Room Air 02/04/25 22:53 02/05/25 00:00 02/05/25 00:33 Temperature 98.3 F Temperature Source Pulse Rate 80 72 72 Respiratory Rate 16 16 16 Respiratory Effort Respiratory Pattern Blood Pressure 106/72 107/69 107/69 Blood Pressure Mean 83 81 81 Pulse Ox 100 97 97 Oxygen Delivery Method Room Air Room Air MDM MDM MDM Narrative Medical decision making narrative: Nursing notes, triage notes, available previous documentation, and vital signs were reviewed. Any discrepancies noted were addressed. Differential Diagnoses: Very low suspicion for ACS. Consider arrhythmia but lower suspicion for that does not seem to be neurological low suspicion for PE or aortic etiology seems to be more musculoskeletal in nature it is not a necrotizing process or cellulitis or shingles Interventions: Toradol Labs Reviewed: No leukocytosis leukopenia anemia D-dimer is unremarkable no electrolyte abnormality renal insufficiency troponin x 2 was less than 6 Imaging Reviewed: Personally reviewed and interpreted by me: Chest x-ray no pneumonia edema widened mediastinum or pneumothoraces EKG: Normal sinus rhythm rate of 79. I do not see evidence of ACS. No evidence of prolonged QT syndrome. No evidence of AV Block. No short MA intervals, wide QRS, or Delta waves indicative of WPW. No evidence of dagger-like q waves or LVH indicative of Hypertrophic Cardiomyopathy. No evidence of Brugada Syndrome. EKG interpretation is noted and agreed to in the EMR. The interpretation of this patient's EKG contributed directly to the care and management of this patient. Previous Documentation Reviewed: None available or applicable at this time. ED Course: Patient presenting with symptoms as described above of note she is on spironolactone for hair loss she has no other medical conditions of any significance that would relate to this. Her workup was unremarkable recommended anti-inflammatories for her symptoms return precautions follow-up recommendations provided this patient stable for discharge home. Also of note patient states I was fixed so I cannot be . This note was made utilizing voice recognition software. All attempts were made to correct spelling or other errors prior to note completion. However, due to the fast-paced nature of emergency medicine, some errors may still be present. Lab Data Labs: Laboratory Results - last 24 hr 02/04/25 02/04/25 22:00 23:29 WBC 10.0 RBC 4.72 Hgb 13.2 Hct 39.7 MCV 84.1 MCH 28.0 MCHC 33.2 RDW Std Deviation 38.6 RDW Coeff of Ino 12.7 Plt Count 362 MPV 9.3 Immature Gran % (Auto) 0.200 Neut % (Auto) 61.0 Lymph % (Auto) 27.9 [place] % (Auto) 5.6 Eos % (Auto) 5.0 Baso % (Auto) 0.3 Absolute Neuts (auto) 6.1 Absolute Lymphs (auto) 2.78 Nucleated RBC % 0 D-Dimer Quant (PE/DVT) 0.34 Sodium 140 Potassium 3.6 Chloride 104 Carbon Dioxide 26.9 Anion Gap 9 BUN 9 Creatinine 0.74 Estim Creat Clear Calc 116.89 Est GFR (MDRD) Non-Af 111 BUN/Creatinine Ratio 12.1 Glucose 116 H Calcium 9.5 Troponin T High Sens < 6 Troponin T Hi Sens 2 Hr < 6 Radiography Diagnostic Testing: Clinical Impression(s) from Imaging Studies Chest X-Ray 02/04/25 22:27 IMPRESSION: No acute cardiopulmonary disease. Reading Location: [id number] Discharge Plan Triage Chief Complaint: Chest Pain ED Provider: Leopoldo Fernández Dx/Rx/DC Orders Clinical Impression: Musculoskeletal chest pain, Acute costochondritis, Intermittent lightheadedness Instructions: ED Chest Wall Pain, Costochondritis Prescriptions: New ibuprofen 600 mg tablet 600 mg PO Q6H PRN PRN (Reason: fever or pain) Qty: 20 0RF No Action cholecalciferol (vitamin D3) 250 mcg (10,000 unit) capsule 250 mcg PO DAILY cyanocobalamin (vitamin B-12) 1,000 mcg capsule 1,000 mcg PO DAILY ferrous sulfate [Feosol] 325 mg (65 mg iron) tablet 325 mg PO DAILY spironolactone 100 mg tablet 100 mg PO BID phentermine 37.5 mg tablet 37.5 mg PO DAILY ascorbic acid (vitamin C) 500 mg tablet 1,000 mg PO DAILY Primary Care Provider: Savita Salas NP Referrals: Savita Salas NP, [facility] [Primary Care Provider, Palliative Medicine] Activity Restrictions/Additional Instructions: Be sure to follow-up with your medical care team please return if you are having worsening symptoms Print Language: Danish Disposition Disposition: Home, Self Care
== END 2025-02-05 00:51 | disposition home or self-care (01) ==
PROVIDERS: Emergency Provider Specialist/Technologist Athletic Trainer; PCP Nurse Practitioner Family; Visit Provider Specialist/Technologist Athletic Trainer
DX: M94.0 Chondrocostal junction syndrome [Tietze] (principal); R42 Dizziness and giddiness
CPT/HCPCS: 71046; 80048; 84484; 85025; 85379; 93005; 96374; 99284; A4216